=== PATIENT | female | born 1995 | race Caucasian/White ===

== ENCOUNTER 2021-02-19 23:04 | Inpatient (IN) | payer BC ==
[2021-02-19] MEDS ORDERED: Oxytocin/Lactated Ringers 10 UNIT/1,000 ML BAG IV SCH ×2 (23:45)
[2021-02-20] MEDS ORDERED: Bupivacaine 0.25% 10 ML SDV ONE
[2021-02-20] MEDS: Nalbuphine 10 MG/1 ML Vial IVPUSH PRN ×2 (01:52→08:20)
[2021-02-20] MEDS: Lactated Ringers 1,000 ML IV SCH ×4 (04:03→12:25)
[2021-02-20] MEDS ORDERED: Bupivacaine/fentaNYL/NS 100 ML Bag EPIDUR PRN (08:50)
[2021-02-20] MEDS ORDERED: ePHEDrine 50 MG/ML SDV IVPUSH PRN (08:50)
[2021-02-20] MEDS ORDERED: diphenhydrAMINE 50 MG/ML SDV IVPUSH PRN (08:50)
[2021-02-20] MEDS ORDERED: Sodium Chloride 0.9% 10 ML Syringe FLUSH SCH (09:00)
[2021-02-20] MEDS: fentaNYL 100 MCG/2 ML SDV EPIDUR PRN ×2 (09:03→09:37)
[2021-02-20] MEDS ORDERED: Lidocaine 1% 50 ML MDV ONE (16:10)
[2021-02-20] MEDS ORDERED: Lidocaine 1% 50 ML MDV INJECT SCH (16:15)
[2021-02-20] MEDS ORDERED: Benzocaine/Menthol 20%-0.5% Spray 78 GM Cannister TOP PRN (16:53)
[2021-02-20] MEDS ORDERED: Magnesium Hydroxide 400 MG/5 ML Susp 30 ML Cup PO PRN (16:53)
[2021-02-20] MEDS ORDERED: Measles, Mumps & Rubella Vaccine 0.5 ML SDV SUBCUT ONE (16:53)
[2021-02-20] MEDS ORDERED: Acetaminophen 325 MG Tab PO PRN (16:53)
[2021-02-20] MEDS ORDERED: Witch Hazel Medicated Pads 40/Jar TOP PRN (16:53)
[2021-02-20] MEDS ORDERED: Oxytocin/Lactated Ringers 10 UNIT/1,000 ML BAG IV SCH (16:53)
[2021-02-20] MEDS ORDERED: Hydrocortisone Acetate 25 MG Supp RECTAL PRN (16:53)
[2021-02-20] MEDS: Ibuprofen 600 MG Tab PO PRN (18:16)
[2021-02-20] MEDS: Docusate Sodium 100 MG Cap PO PRN (19:49)
[2021-02-20] MEDS: Enoxaparin 40 MG/0.4 ML Syringe SUBCUT SCH (20:36)
[2021-02-21] MEDS: Ibuprofen 600 MG Tab PO PRN ×3 (03:34→16:30)
[2021-02-21] MEDS: Enoxaparin 40 MG/0.4 ML Syringe SUBCUT SCH (10:43)
[2021-02-21] MEDS: Prenatal Multivitamin with Calcium/Folic Acid/Iron Tab PO SCH (10:44)
[2021-02-21] MEDS: Docusate Sodium 100 MG Cap PO PRN (16:30)
[2021-02-22 10:33] VITALS: BP 118/79; PULSE 87
[2021-02-22] MEDS: Prenatal Multivitamin with Calcium/Folic Acid/Iron Tab PO SCH (10:56)
[2021-02-22] MEDS: Enoxaparin 40 MG/0.4 ML Syringe SUBCUT SCH (10:56)
== END 2021-02-22 13:30 | disposition home or self-care (01) | DRG 560 ==
LOC: JD.OBCHECK 23:04 → JD.OB 23:07 → JD.OBCHECK 23:51 → JD.OB 23:52 → OBSVTOIN 02-20 15:59 → JD.OB 02-20 16:00
PROVIDERS: ADMIT Obstetrics & Gynecology; ATTEND Obstetrics & Gynecology
PROC: 10E0XZZ Delivery of Products of Conception, External Approach (ICD-10-PCS; principal; 2021-02-20)
PROC: 0KQM0ZZ Repair Perineum Muscle, Open Approach (ICD-10-PCS; 2021-02-20)
PROC: 10907ZC Drainage of Amniotic Fluid, Therapeutic from Products of Conception, Via Natural or Artificial Opening (ICD-10-PCS; 2021-02-20)
PROC: 3E0R3BZ Introduction of Anesthetic Agent into Spinal Canal, Percutaneous Approach (ICD-10-PCS; 2021-02-20)
DX: O48.0 Post-term pregnancy (principal); Z3A.40 40 weeks gestation of pregnancy; Z37.0 Single live birth; O99.12 Other diseases of the blood and blood-forming organs and certain disorders involving the immune mechanism complicating childbirth; D68.51 Activated protein C resistance; O70.1 Second degree perineal laceration during delivery; O69.81X0 Labor and delivery complicated by cord around neck, without compression, not applicable or unspecified
CPT/HCPCS: 01967; 36415; 51702; 59025; 59409; 80053; 85025; 85384; 85461; 85610; 85730; 86592; 86850; 86870; 86900; 86901; A9270-GY; J1650; J2001; J2300; J2590; J2790; J3010; J3490; J7120; U0002

== ENCOUNTER 2024-10-16 09:12 | Inpatient (IN) | payer BC ==
[2024-10-16] MEDS ORDERED: Sodium Chloride 0.9% 10 ML Syringe FLUSH PRN (09:29)
[2024-10-16] MEDS ORDERED: Lactated Ringers 1,000 ML IV SCH (09:30)
[2024-10-16] MEDS ORDERED: Oxytocin/0.9 % Sodium Chloride 30 UNIT/500 ML BAG IV SCH (09:30)
[2024-10-16] MEDS: Nalbuphine 10 MG/1 ML Vial IVPUSH PRN (09:36)
[2024-10-16] MEDS: Ondansetron 4 MG/2 ML SDV IVPUSH PRN (09:39)
[2024-10-16 09:47] LABS: BASOPHILS ABSOLUTE AUTO 0.0 K/mm3 (0.0-0.2); BASOPHILS PERCENT AUTO 0.3 % (0.0-1.0); EOSINOPHILS ABSOLUTE AUTO 0.0 K/mm3 (0.0-0.4); EOSINOPHILS PERCENT AUTO 0.2 % (0.0-6.0); IMMATURE GRAN ABSOLUTE AUTO 0.13 K/mm3 (0.00-0.05); IMMATURE GRAN PERCENT AUTO 1.5 % (0.0-0.4); LYMPHOCYTES ABSOLUTE AUTO 1.4 K/mm3 (1.0-4.8); LYMPHOCYTES PERCENT AUTO 16.2 % (24.0-44.0); MEAN PLATELET VOLUME 10.8 fl (9.4-12.3); MONOCYTES ABSOLUTE AUTO 0.5 K/mm3 (0.0-0.8); MONOCYTES PERCENT AUTO 6.0 % (0.0-8.0); NEUTROPHILS ABSOLUTE AUTO 6.7 K/mm3 (1.8-7.7); NEUTROPHILS PERCENT AUTO 75.8 % (41.0-71.0); NRBC ABSOLUTE 0.00 (0.00-0.02); NRBC PERCENT 0.0 % (0.0-0.2); PLATELET COUNT,PLT 158 K/mm3 (150-400); RED BLOOD CELL COUNT 4.32 M/mm3 (4.10-5.30); WHITE BLOOD CELL COUNT,WBC 8.89 K/mm3 (3.9-11.3)
[2024-10-16] MEDS: Oxytocin/0.9 % Sodium Chloride 30 UNIT/500 ML BAG IV SCH (11:56)
[2024-10-16] MEDS: Benzocaine/Menthol 20%-0.5% Spray 78 GM Cannister TOP PRN (14:09)
[2024-10-16] MEDS: Witch Hazel Medicated Pads 40/Jar TOP PRN (14:09)
[2024-10-16] MEDS ORDERED: Sodium Chloride 0.9% 10 ML Syringe FLUSH SCH (21:00)
[2024-10-17 14:45] VITALS: BP 113/81; PULSE 68
== END 2024-10-17 13:52 | disposition home or self-care (01) | DRG 560 ==
LOC: JD.OBCHECK 09:12 → JD.OB 09:13 → JD.OBCHECK 09:38 → OBSVTOIN 11:55 → INTOOBSV 11:55 → JD.MS 12:49 → JD.OB 15:58 → OBSVTOIN 10-17 02:38
PROVIDERS: ADMIT Obstetrics & Gynecology; ATTEND Obstetrics & Gynecology
PROC: 30233S1 Transfusion of Nonautologous Globulin into Peripheral Vein, Percutaneous Approach (ICD-10-PCS; principal; 2024-10-17)
PROC: 10E0XZZ Delivery of Products of Conception, External Approach (ICD-10-PCS; principal; 2024-10-17)
PROC: 10907ZC Drainage of Amniotic Fluid, Therapeutic from Products of Conception, Via Natural or Artificial Opening (ICD-10-PCS; principal; 2024-10-17)
DX: O48.0 Post-term pregnancy (principal); Z3A.40 40 weeks gestation of pregnancy; O99.113 Other diseases of the blood and blood-forming organs and certain disorders involving the immune mechanism complicating pregnancy, third trimester; Z37.0 Single live birth; D68.51 Activated protein C resistance; Z67.91 Unspecified blood type, Rh negative; Z98.890 Other specified postprocedural states; Z79.899 Other long term (current) drug therapy; Z79.01 Long term (current) use of anticoagulants
CPT/HCPCS: 36415; 36430; 59025; 59409; 85025; 85461; 86592; 86850; 86900; 86901; A9270-GY; J1650; J2300; J2405; J2791; J7999